=== PATIENT | female | born 1980 | race African-American/Black ===

== ENCOUNTER 2016-12-26 23:43 | Emergency (ER) | payer OTHER ==
[~2016-12-26] VITALS: Ht 160 cm; Wt 74.8 kg
[~2016-12-26 23:43] MED LIST: AMOXICILLIN500 M2 PO; IBUPROFEN600 M1 PO
--- NOTE | 2016-12-27 00:31 | ED GI/GU/ABDOMINAL COMPLAINT ---
History of Present Illness General Chief Complaint: General Adult Stated Complaint: "THINK I HAVE A UTI" PER PT Source: patient Exam Limitations: no limitations Vital Signs & Intake/Output Vital Signs & Intake/Output ED Intake and Output 12/28 0000 12/27 1200 Intake Total 0 Output Total Balance 0 Intake, Oral 0 Patient 165 lb Weight Allergies Coded Allergies: olanzapine (SWOLLEN TONGUE 08/03/16) escitalopram (From LEXAPRO) (FINGERS NUMB 08/03/16) sulfamethoxazole (From BACTRIM) (GI DISTRESS 08/03/16) trimethoprim (From BACTRIM) (GI DISTRESS 08/03/16) Reconcile Medications Amoxicillin 500 MG CAPSULE 1 CAP PO TID INFECTION Ibuprofen 600 MG TABLET 1 TAB PO TID INFLAMATION, PAIN with food Triage Note: PT STATES "I THINK I HAVE A BLADDER INFECTION" PT COMPLAINS OF FREQUENT URINATION AND IRRITATION IN VAGINAL AREA. PT ALSO COMPLAINS OF WHITE THICK DISCHARGE. PT HAS BEEN USING A VAGINAL CREAM X1 WEEK FROM PCP FOR YEAST INFECTION. PT ALSO COMPLAINS OF PAIN IN L FLANK. Triage Nurses Notes Reviewed? yes ? n Is pt currently ? No Onset: Abrupt Duration: week(s): Timing: recent history Quality/Severity: moderate, sharpness, severe Location: left flank, urethral No Modifying Factors: none HPI: 35-year-old female comes into emergency room with complaints of increased frequency of urination and urgency and burning. Patient complains of some left- sided back pain. Patient also reports that she's had some vaginal discharge. Patient reports that she was told by her doctor that she had Trichomonas and a vaginal infection and was given medication for the Trichomonas as well as a cream for her vaginal area. Patient reports that she is still having persistent discharge. Denies any fever or vomiting. Patient comes in for further evaluation. Patient admits to having one sexual partner. (ROSALEE LINTON) Past History Travel History Traveled to [place] past 21 day No Medical History Any Pertinent Medical History? see below for history Respiratory: asthma Renal: polycystic kidney disease Surgical History Surgical History: none Psychosocial History What is your primary language British Tobacco Use: Current Not Daily ETOH Use: denies use Illicit Drug Use: denies illicit drug use Family History Hx Contributory? No (ROSALEE LINTON) Review of Systems Review of Systems Constitutional: Reports: no symptoms. EENTM: Reports: no symptoms. Respiratory: Reports: no symptoms. Cardiovascular: Reports: no symptoms. GI: Reports: no symptoms. Genitourinary: Reports: see HPI. Musculoskeletal: Reports: no symptoms. Skin: Reports: no symptoms. Neurological/Psychological: Reports: no symptoms. Hematologic/Endocrine: Reports: no symptoms. Immunologic/Allergic: Reports: no symptoms. All Other Systems: Reviewed and Negative (ROSALEE LINTON) Physical Exam Physical Exam General Appearance: well developed/nourished, no apparent distress, alert Head: atraumatic, normal appearance Eyes: Bilateral: normal appearance, EOMI. Ears, Nose, Throat, Mouth: hearing grossly normal, moist mucous membrane Neck: normal inspection, full range of motion Respiratory: normal breath sounds, no respiratory distress Cardiovascular: regular rate/rhythm Gastrointestinal: soft, non-tender Pelvic: cervicitis, discharge (white, homogeneous) Back: normal inspection Extremities: normal range of motion Neurologic/Psych: awake, alert, oriented x 3, normal gait Skin: intact, normal color Core Measures ACS in differential dx? No Severe Sepsis Present: No Septic Shock Present: No (ROSALEE LINTON) Progress Differential Diagnosis: appendicitis, biliary colic, cholecystitis, diverticulitis, ectopic , gastritis, hepatitis, intrauterine , kidney stone, ovarian cyst, ovarian torsion, pancreatitis, PID/cervicitis, peptic ulcer, threatened AB, UTI/pyelo Plan of Care: Orders Procedure Date/time Status Add-on Test (ER Only) 12/27 010 Active TRICHOMONAS 12/27 54 Active POTASSIUM HYDROXIDE (LEAH) 12/27 54 Active GENITAL CULTURE 12/27 54 Active CHLAMYDIA-GC DNA PROBE 12/27 54 Active URINE 12/26 2357 Active URINALYSIS 12/26 2357 Active Laboratory Tests 12/27/16 0015: Urine Color STRAW, Urine Clarity CLEAR, Urine pH 6.0, Ur Specific [place] 1.010, Urine Protein NEG, Urine Ketones NEG, Urine Nitrite NEG, Urine Bilirubin NEG, Urine Urobilinogen 0.2, Ur Leukocyte Esterase NEG, Ur Microscopic EXAM NOT REQUIRED, Urine Hemoglobin NEG, Urine Glucose NEG, Urine Test Pending Microbiology 12/27 54 GENITAL: GC DNA Probe - ORD 12/27 54 GENITAL: Chlamydia DNA Probe (LORNA) - ORD 12/27 54 GENITAL: LEAH Preparation - ORD 12/27 54 GENITAL: Trichomonas Preparation - ORD 12/27 54 GENITAL: Genital Culture - ORD Initial ED EKG: none (ROSALEE LINTON) Departure Departure Disposition: HOME OR SELF CARE Condition: Stable Clinical Impression Primary Impression: Cervicitis Referrals: PATIENT HAS NO PRIMARY CARE DR (PCP/Family) Additional Instructions: Follow-up with ULTRASONOGRAPHER doctor. Follow-up culture sent. Return if any concerns worsening symptoms. Refrain from any sexual intercourse until results are back. Please go over all results of today's visit with your primary care doctor. Contact your primary care doctor to let them know you were here in the emergency room. There may be nonspecific findings which may not be related to your visit today here in the emergency room but may require further evaluation and chronic monitoring by your primary care doctor. If you had a laceration today the chance of foreign body always remains. You should follow-up with your primary care doctor for recheck in 3-5 days for a wound check. If you had an x-ray done there is a chance that a fracture could have been missed on initial read and you should follow-up with your primary care doctor for repeat x-rays if symptoms persist. If your blood pressure was elevated here in the emergency room please have rechecked by her primary care doctor within the next 48 hours by your primary care doctor. If you were prescribed a narcotic here in the emergency room or any type of controlled substances you're not allowed to drive while taking this medication or operate any type of heavy machinery. Narcotics can make you feel lightheaded dizziness nausea and can cause constipation. You may need to crop picker a stool softener. Thank you for choosing [facility] emergency room. Please return to the emergency room immediately if you have any other concerns worsening of symptoms. Departure Forms: Customer Survey General Discharge Information Comments Patient clinically looks well. Nontoxic-appearing. In no apparent distress. Patient treated prophylactically for everything. Follow-up with ULTRASONOGRAPHER. No sexual intercourse until results are back. (ROSALEE LINTON) PA/PLANT TECHNICIAN/CONTROL ROOM OPERATOR Co-Sign Statement Statement: ED Attending supervision documentation- [] I saw and evaluated the patient. I have also reviewed all the pertinent lab results and diagnostic results. I agree with the findings and the plan of care as documented in the PA's/PLANT TECHNICIAN/CONTROL ROOM OPERATOR's documentation. [X] I have reviewed the ED Record and agree with the PA's/PLANT TECHNICIAN/CONTROL ROOM OPERATOR's documentation. [] Additions or exceptions (if any) to the PAs/PLANT TECHNICIAN/CONTROL ROOM OPERATOR's note and plan are summarized below: [] (MAXIME COSTA,JOAQUÍN Carrillo)
[2016-12-27 01:17] VITALS: BP 161/78
== END 2016-12-27 01:45 ==
LOC: ERH 23:43
DX: N72 Inflammatory disease of cervix uteri (principal); R30.0 Dysuria
CPT/HCPCS: 87070; 81003; 81025; 87086; 87491; 87591; 96372; J0696